=== PATIENT | male | born 1970 ===

== ENCOUNTER 2018-01-11 12:04 | Day surgery (SDC) | payer OTHER ==
[2018-01-11] MEDS ORDERED: ATROPINE SULFATE 1 MG/10 ML SYR IVP ONE (12:11)
[2018-01-11] MEDS ORDERED: MIDAZOLAM 2 MG/2 ML VIAL IVP ONE (12:11)
[2018-01-11] MEDS ORDERED: fentaNYL 100 MCG/2 ML INJ IVP ONE (12:11)
[2018-01-11] MEDS ORDERED: NS 500 ML IV ONE (12:11)
--- NOTE | 2018-01-11 12:22 | CPEKG ---
Heart Rate: 74 RR Interval: 811 QRSD Interval: 86 QT Interval: 396 QTC Interval: 440 QRS [place]: 79 T Wave [place]: 36 EKG Severity - ABNORMAL ECG - EKG Impression: ATRIAL FIBRILLATION Electronically Signed By: Cosme Ba 12-Jan-2018 07:38:24
[2018-01-11 12:56] LABS: INR 1.29 (0.83-1.16); PROTIME(PATIENT) 16.3 SEC (12.0-15.0)
--- NOTE | 2018-01-11 13:22 | PDANEPAE ---
ANE History of Present Illness here for CV for AF ANE Past Medical History - Cardiovascular History Hx Hypertension: No Hx Arrhythmias: Yes Hx Chest Pain: No Hx Coronary Artery / Peripheral Vascular Disease: No Hx CHF / Valvular Disease: No Hx Palpitations: No - Pulmonary History Hx COPD: No Hx Asthma/Reactive Airway Disease: No Hx Recent Upper Respiratory Infection: No Hx Oxygen in Use at Home: No Hx Sleep Apnea: No - Neurologic History Hx Cerebrovascular Accident: No Hx Seizures: No Hx Dementia: No - Endocrine History Hx Diabetes: No Hypothyroid: No Hyperthyroid: No Obesity: no - Renal History Hx Renal Disorders: No - Liver History Hx Hepatic Disorders: No - Neurological & Psychiatric Hx Hx Neurological and Psychiatric Disorders: No - Cancer History Hx Cancer: No - Congenital Disorder History Hx Congenital Disorders: No - GI History GERD: no Hx Gastrointestinal Disorders: No - Chronic Pain History Chronic Pain: No ANE Review of Systems Review of systems is: negative Review of Systems: - Exercise capacity Exercise capacity: >=4 METS ANE Patient History - Allergies Allergies/Adverse Reactions: No Known Allergies Allergy (Unverified 01/11/18 12:10) - Home Medications Home medications: home medication list seen and reviewed - NPO status NPO Status: no food or drink >8 hours - Anes Hx Anes Hx: no prior problems - Smoking Hx Smoking Status: Never smoked Marijuana use: No - Alcohol Use Alcohol Use: Occasionally - Family Anes Hx Family Anes Hx: none ANE Labs/Vital Signs - Labs Result Diagrams: 01/11/18 12:30 - Vital Signs Vital Signs: reviewed preoperatively; see RN documention for details ANE Physical Exam - Airway Neck exam: FROM Mallampati Score: Class 1 Mouth exam: normal dental/mouth exam - Pulmonary Pulmonary: no respiratory distress - Cardiovascular Cardiovascular: regular rate and rhythym - ASA Status ASA Status: II ANE Anesthesia Plan Anesthesia Plan: GA with mask
--- NOTE | 2018-01-11 13:23 | PDHPUP ---
History & Physical Update H&P update statement: This history and physical update is based on an assessment of the patient which was completed after admission or registration (within 24 hours), but prior to the surgery/procedure. H&P update: H&P reviewed & patient examined, no change in patient's condition since H&P completed
[2018-01-11] MEDS ORDERED: PROPOFOL 200 MG/20 ML VIAL ONE (13:24)
--- NOTE | 2018-01-11 13:39 | POSTANESTH ---
Post Anesthetic Evaluation Cardiovascular Status: Normal, Stable Respiratory Status: Normal, Stable Level of Consciousness/Mental Status: Can Participate in Eval Pain Control: Adequate, Prn Tx Ordered Nausea/Vomiting Control: Adequate, Prn Tx Ordered Complications Possibly Related to Anesthesia: None Noted
--- NOTE | 2018-01-11 13:48 | CPEKG ---
Heart Rate: 60 RR Interval: 1000 P-R Interval: 200 QRSD Interval: 86 QT Interval: 448 QTC Interval: 448 P [place]: 59 QRS [place]: 68 T Wave [place]: 44 EKG Severity - NORMAL ECG - EKG Impression: SINUS RHYTHM Electronically Signed By: Cosme Ba 12-Jan-2018 07:38:14
--- NOTE | 2018-01-11 14:51 | EPPROC ---
Electrophysiology Procedure Note: Procedure: CV Indication: Pt sedated using general anesthesia. Once sedated, he underwent synchronized DCCV at 200J. Pt converted to SR conclusion: Successful Cv
== END 2018-01-11 15:00 | disposition home or self-care (01) ==
LOC: FCATH 12:04
PROVIDERS: ATTEND Internal Medicine Cardiovascular Disease
PROC: 5A2204Z Restoration of Cardiac Rhythm, Single (ICD-10-PCS; principal; 2018-01-11)
DX: I48.1 Persistent atrial fibrillation (principal)
CPT/HCPCS: J0461; J2704

== ENCOUNTER 2018-01-26 07:05 | Day surgery (SDC) | payer OTHER ==
[2018-01-26] MEDS ORDERED: NS 500 ML IV ONE (07:06)
[2018-01-26] MEDS ORDERED: ATROPINE SULFATE 1 MG/10 ML SYR IVP ONE (07:06)
[2018-01-26] MEDS ORDERED: MIDAZOLAM 2 MG/2 ML VIAL IVP ONE (07:06)
[2018-01-26] MEDS ORDERED: fentaNYL 100 MCG/2 ML INJ IVP ONE (07:06)
[2018-01-26 07:38] LABS: INR 1.26 (0.83-1.16)
[2018-01-26] MEDS ORDERED: PROPOFOL 200 MG/20 ML VIAL ONE ×2 (07:54)
--- NOTE | 2018-01-26 08:04 | PDANEPAE ---
ANE History of Present Illness Synchronized cardioversion ANE Past Medical History - Cardiovascular History Hx Hypertension: No Hx Arrhythmias: Yes Hx Chest Pain: No Hx Coronary Artery / Peripheral Vascular Disease: No Hx CHF / Valvular Disease: No Hx Palpitations: No Cardiovascular History Comment: Atrial fibrillation - Pulmonary History Hx COPD: No Hx Asthma/Reactive Airway Disease: No Hx Recent Upper Respiratory Infection: No Hx Oxygen in Use at Home: No Hx Sleep Apnea: No - Neurologic History Hx Cerebrovascular Accident: No Hx Seizures: No Hx Dementia: No - Endocrine History Hx Diabetes: No Obesity: no - Renal History Hx Renal Disorders: No - Liver History Hx Hepatic Disorders: No - Neurological & Psychiatric Hx Hx Neurological and Psychiatric Disorders: No - Cancer History Hx Cancer: No - Congenital Disorder History Hx Congenital Disorders: No - GI History GERD: no Hx Gastrointestinal Disorders: No - Chronic Pain History Chronic Pain: No - Surgical History Prior Surgeries: knee arthroscopy ANE Review of Systems Review of Systems: - Exercise capacity METS (RN): 4 METS ANE Patient History - Allergies Allergies/Adverse Reactions: No Known Allergies Allergy (Verified 01/23/18 10:32) - Home Medications Home Medications: Apixaban [Eliquis] 5 mg PO BID 01/23/18 [Last Taken 01/26/18 06:40] Flecainide Acetate 100 mg PO BID 01/23/18 [Last Taken 01/26/18 06:40] - Anes Hx Anes Hx: no prior problems - Smoking Hx Smoking Status: Never smoked - Alcohol Use Alcohol Use: Other (5 drinks/week) - Family Anes Hx Family Anes Hx: none ANE Labs/Vital Signs - Labs Result Diagrams: 01/26/18 07:25 - Vital Signs Height: 185 cm Weight: 100.7 kg ANE Physical Exam - Airway Neck exam: FROM Mallampati Score: Class 1 (Upper front crown) - Pulmonary Pulmonary: clear to auscultation - Cardiovascular Cardiovascular: irregularly irregular - ASA Status ASA Status: II ANE Anesthesia Plan Anesthesia Plan: GA with mask
--- NOTE | 2018-01-26 08:24 | CPEKG ---
Heart Rate: 68 RR Interval: 882 P-R Interval: 212 QRSD Interval: 88 QT Interval: 424 QTC Interval: 451 P [place]: 56 QRS [place]: 71 T Wave [place]: 34 EKG Severity - ABNORMAL ECG - EKG Impression: SINUS RHYTHM EKG Impression: FIRST DEGREE AV BLOCK Electronically Signed By: Tej Cortez 26-Jan-2018 12:57:00
--- NOTE | 2018-01-26 08:53 | CPEKG ---
Heart Rate: 71 RR Interval: 845 QRSD Interval: 86 QT Interval: 392 QTC Interval: 426 QRS [place]: 75 T Wave [place]: 24 EKG Severity - ABNORMAL ECG - EKG Impression: ATRIAL FIBRILLATION, V-RATE 64-79 Electronically Signed By: Tej Cortez 26-Jan-2018 12:57:07
--- NOTE | 2018-01-26 09:42 | POSTANESTH ---
Post Anesthetic Evaluation Cardiovascular Status: Similar to Pre-Op Cond Respiratory Status: Normal, Stable Level of Consciousness/Mental Status: Can Participate in Eval Pain Control: Adequate, Prn Tx Ordered Nausea/Vomiting Control: Adequate, Prn Tx Ordered Complications Possibly Related to Anesthesia: None Noted
--- NOTE | 2018-01-26 12:58 | PDCARD ---
Cardioversion Procedure Procedure: electrical cardioversion Indications: atrial fibrillation Consent: signed and in chart Anticoagulation: eliquis Procedural Details: Pads were placed in anterior-posterior position. Synchronized cardioversion attempt #1: 200J Results: normal sinus rhythm Conclusions: successful cardioversion
== END 2018-01-26 09:43 | disposition home or self-care (01) ==
LOC: FCATH 07:05
PROVIDERS: ATTEND Internal Medicine Cardiovascular Disease
PROC: 5A2204Z Restoration of Cardiac Rhythm, Single (ICD-10-PCS; principal; 2018-01-26)
DX: I48.91 Unspecified atrial fibrillation (principal)
CPT/HCPCS: J0461; J2704